=== PATIENT | female | born 1955 | race Caucasian/White ===

== ENCOUNTER 2020-02-03 12:53 | Inpatient (IN) | payer OTHER ==
[~2020-02-03] VITALS: Ht 147.3 cm; Wt 38.1 kg
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
[2020-02-03] MEDS ORDERED: OLAN15TA3 PO (15:36)
[2020-02-03] MEDS ORDERED: CARB-53 PO (15:36)
[2020-02-03 16:00] VITALS: BP 120/55
[2020-02-03] MEDS ORDERED: TEMAZEPAM 7.5 MG CAPSULE PO PRN (16:30)
[2020-02-03] MEDS ORDERED: MAGNESIUM HYDROXIDE 30 ML UDC PO PRN (16:30)
[2020-02-03] MEDS ORDERED: BLOOD SUGAR DIAGNOSTIC 1 EACH STRIP IN ONE (16:30)
[2020-02-03] MEDS ORDERED: MAG HYDROX/AL HYDROX/SIMETH 30 ML UDC PO PRN (16:30)
[2020-02-03] MEDS ORDERED: ACETAMINOPHEN 325 MG TABLET PO PRN (16:30)
--- NOTE | 2020-02-03 16:30 | NUR ---
GPS/RN-NOTES BOARD OF EDUCATION SECRETARY CALLED DR. WRIGHT REGARDING PATIENT ADMISSION AND LEFT A VOICE MESSAGE. STILL AWAITING FOR CALL BACK.
[2020-02-03 20:00] VITALS: BP 97/50
--- NOTE | 2020-02-03 21:00 | NUR ---
RN NOTES: PT. SEEN BY DR WRIGHT ,WITH NEW ORDES, NEW ORDES NOTED AND CARRIED OUT.
[2020-02-03] MEDS: risperiDONE 1 MG TABLET PO SCH (21:50)
[2020-02-03 23:00] VITALS: BP 100/64
--- NOTE | 2020-02-04 06:38 | NUR ---
GPS RN NOTES: PT. RESTING IN HER ROOM, PT.REMAINED STABLE THROUGHOUT SHIFT, NO S/S OF DISTRESS NOTED , ALL CARE NEEDS MET ANTICIPATED. MED COMPLIANT ,PT. BEHAVIOR ,PARANOID EASILY AGITATED, NEEDS FREQUENTLY REDIRECTIONS ,WILL CONTINUE TO MONITOR FOR SAFETY BEHAVIOR, AND ENDORSE TO AM SHIFT FOR CONTINUITY OF CARE.
--- NOTE | 2020-02-04 06:44 | NUR ---
RN NOTES : REFUSED SKIN ASSESSMENT PT. REFUSED SKIN ASSESSMENT AND PICTURES TO BE TAKEN , PER PT. STATED MY SKIN IS GOOD RISKS AND BENEFITS EXPLINED, PT. STRONGLY REFUSED, AND PT. REFUSED FACE PICTURES FOR THE CHART.
[2020-02-04 08:00] VITALS: BP 106/85
[2020-02-04] MEDS: risperiDONE 1 MG TABLET PO SCH ×2 (08:32→20:53)
[2020-02-04 08:55] LABS: ALBUMIN 3.4 g/dL (3.4-5.0); BILIRUBIN,TOTAL 0.4 mg/dL (0.2-1.0); CALCIUM, SERUM 8.8 mg/dL (8.5-10.1); CREATININE 0.5 mg/dL (0.6-1.3); TOTAL PROTEIN, SERUM 7.6 g/dL (6.4-8.2)
--- NOTE | 2020-02-04 10:47 | NUR ---
INITIAL DISCHARGE PLAN: Patient currently resides at [address] [place] [address] ([phone]). Patient would like to return to her apartment upon discharge. Patient's counter caser Nettie William ([phone]) is involved in her care. SW will continue to work with patient, family, and MD to ensure a safe and proper discharge plan.
--- NOTE | 2020-02-04 10:48 | NUR ---
PHILOSOPHY PROFESSORSPRINKLER TRUCK DRIVER: SW contacted patient's watch case polisher Nettieivana William ([phone]) who is involved in her care to collect collateral information. Nettie stated to give her a call back at 11:30am.
--- NOTE | 2020-02-04 11:00 | NUR ---
UR NOTE: Auth: [id number] [facility]- [employer] Approval Days - 3 - 02/02-02/04 Concurrent Review Due on 02/04 Case Manger: Elodia: [phone]
--- NOTE | 2020-02-04 11:10 | NUR ---
GPS/RN-NOTES OFFERED FLU VACCINE AND PNA VACCINE STATED" MY DOCTOR TOLD ME THAT I DON'T NEED ANY VACCINE,AND I NEVER TAKE ANY VACCINE IN MY LIFE". EXPLAINED RISK AND BENEFITS BUT PATIENT STILL REFUSED.
--- NOTE | 2020-02-04 12:00 | NUR ---
CLAIMS SERVICE ADJUSTORMILK BOTTLING MACHINE OPERATOR: SW spoke with patient's case management rn Nettie Goodmano ([phone]) who stated that she has been working with the patient for the past 3 months. Nettie stated that the patient has been evicted from her apartment as of 02/02/20 and was escorted out by the local refinery operator visbreaking. Nettie asked this proposal writer to help find the patient placement. This SW explained of the several options such as Board and Care, Assisted Living or Possible SNF. Nettie was understanding and hopeful. This SW explained that patient would need to agree with placement.
--- NOTE | 2020-02-04 12:03 | NUR ---
SAUL MANAGER CHEMISTRY CONTACT: SAUL contacted patient's accountant property Caitlyn Cancino ([phone]) regarding patient eviction. This sw requested Caitlyn to fax this junior technical writer fax: [phone] as soon as possible. Caitlyn stated that they served the patient an eviction letter but was unable to clarify whether it was during or before COVID. This junior technical writer stated that we cannot discuss further until the eviction letter is reviewed to determine wether or not the patient may or may not return back home.
--- NOTE | 2020-02-04 13:25 | NUR ---
WRITER EDITORRE EXAMINER: SW received a call from patient's classification case manager Nettie Goodmano ([phone]) who stated that the patient was served an eviction sign on her door on01/25/20 and a letter in the mail, pending eviction since June,. This sw requested Nettie to email this contract technical writer the eviction letter that she has in order to review it. This sw provided her email address ([email or web address]).
--- NOTE | 2020-02-04 13:40 | NUR ---
MIXING PLACE SUPERVISORAIRCRAFT TOOL MAKER: SW received the eviction letter emailed from patient's case resolution specialist Nettie William ([phone]). The eviction letter confirms that the patient cannot return back to her apartment as she has been officially by the [facility] of the [facility] dated 06/19/19. A copy of this letter has been placed in the patient's chart.
--- NOTE | 2020-02-04 14:41 | NUR ---
GPS/RN-NOTES RECEIVED CALL FROM [employer] WITH RECOMMENDATIONS OF ENSURE FOR THE PATIENT. PLANT FLOOR AUTOMATION MANAGER ASKED PATIENT IF SHE WILL TAKE ENSURE SUPPLEMENT RECOMMENDED BY THE TREE THINNER. PATIENT STATED" I RATHER DRINK MILK INSTEAD OF ENSURE BECAUSE I'M WATCHING MY DIET". EXPLAINED RISK AND BENEFITS BUT PATIENT STILL DON'T WANT THE ENSURE.
[2020-02-04 16:00] VITALS: BP 112/72
[2020-02-04 19:49] VITALS: BP 103/61
[2020-02-05 08:00] VITALS: BP 100/59
--- NOTE | 2020-02-05 08:10 | NUR ---
UR NOTE: Auth: [id number] SW received a voicemail from Elodia daycare manager at [facility] ([phone]. [phone]) stating that the patient is authorized for continued stay for additional 4 days with review due on 02/09/20. Clinical review due 02/09/20 should patient require further hospitalization.
[2020-02-05] MEDS: risperiDONE 1 MG TABLET PO SCH ×2 (08:16→21:10)
--- NOTE | 2020-02-05 10:26 | NUR ---
BUSINESS OFFICE TECHNICIANCABLE LAYER: SW spoke with patients case briefer, Nettie Goodmano ([phone]) and discussed discharge planning. This SW stated that after reviewing the eviction letter it is clear that the patient cannot return back to her apartment. This SW stated that after discussing this situation with the patient, she agreed to alternate placement and accepted the fact that she cannot return back to her apartment. Nettie stated that she is working on getting the patient placed in [facility] in-patient psychiatric health facility and is waiting for a confirmation should they have a bed available today or in the coming two days. This SW informed of limited time we have as the patients insurance authorized the patients hospitalization until 02/09/20. Nettie stated that she will give this SW a call at 1:00PM today to update regarding be availability. This SW also discussed that should the patient not be able to admit to the in-patient facility, she may need long-term in [place]. Nettie was understanding of these circumstances and stated that she and her team are actively working on finding the patient a safe placement.
--- NOTE | 2020-02-05 10:27 | NUR ---
COORDINATION OF CARE: SW received a call from Nilam Registered Nurse ([phone]) from [facility] [address] [place] [address] [phone]) stating they are accepting the patient as a transfer from our unit to theirs while remaining on the 5150 hold. The accepting psychiatrist is Dr. Nettles. This SW spoke with Nilam and stated that they would need to provide ambulance transportation for the patient. Nilam stated she will confirm and donte this adoption social worker back to give a confirmed time.
--- NOTE | 2020-02-05 10:55 | NUR ---
COORDINATION OF CARE: SAUL spoke with Sherrie at [facility] ([phone]) to scheduled patient's transportation today. Sherrie will call this sw back with time and confirmation. This sw stated that the patient will remain on a 5150 hold during the transfer. Addendum: 02/05/20 at 1543 by KHALIDA BREWER SAUL spoke with Sherrie and Kristina at [facility] ([phone]) and discussed that the transfer today is cancelled. Kristina stated that once the patient is ready for discharge or transfer, they will provide transportation.
--- NOTE | 2020-02-05 14:15 | NUR ---
COORDINATION OF CARE: Katherine from [facility] [address] [place] [address] ([phone]) called this speech writer confirming the patient's legal status. She stated Nilam will call this SW back regarding transfer update.
--- NOTE | 2020-02-05 14:20 | NUR ---
COORDINATION OF CARE: SAUL received a call from Nilma (ph: [phone] fax: [phone]) requesting patient's clinicals and stated that they are arranging transportation and will call this sign writer hand back soon with a time. This SW faxed Nilam the requested clinicals including the negative COVID test result, 5150 hold, history and physical labs and mediation.
--- NOTE | 2020-02-05 15:32 | NUR ---
COORDINATION OF CARE: SW spoke with Nilam Lead Registered Nurse ([phone]) and Mayra ([phone]) security systems administrator at [facility] who stated that they are unable to accept the patient today due to the patient not having yet had their 5250 probable cause hearing. They stated that once the patient has the hearing, they can accept the transfer. This SW also spoke with patient's case loader operator Nettie Stewart ([phone]) who is updated and made aware of this case. Nettie stated that she will continue to follow up with this social media intern as well as Nilam and Mayra to make sure the patient transfers next week after her PC hearing. Nettie is also aware of the fact that should this plan not work out, she is responsible for finding the patient alternate placement. Mayra also stated that she will begin a bed hold for the patient starting Saturday02/08/20 and she will discuss with accepting psychiatrist Dr. Nettles and keep the bed available for the patient for next week.
[2020-02-05 16:00] VITALS: BP 100/64
[2020-02-05 20:41] VITALS: BP 103/60
--- NOTE | 2020-02-06 06:20 | NUR ---
GPS RN NOTES: PT. RESTING IN HIS ROOM, PT.REMAINED STABLE THROUGHOUT SHIFT, NO S/S OF DISTRESS NOTED , ALL CARE NEEDS MET ANTICIPATED. MED COMPLIANT ,PT. BEHAVIOR ,PARANOID EASILY AGITATED, NEEDS FREQUENTLY REDIRECTIONS ,WILL CONTINUE TO MONITOR FOR SAFETY BEHAVIOR, AND ENDORSE TO AM SHIFT FOR CONTINUITY OF CARE. Addendum: 02/06/20 at 0622 by NAYELI CORDOVA RN GPS RN NOTES: PT. RESTING IN HER ROOM, PT.REMAINED STABLE THROUGHOUT SHIFT, NO S/S OF DISTRESS NOTED , ALL CARE NEEDS MET ANTICIPATED. MED COMPLIANT ,PT. BEHAVIOR ,PARANOID EASILY AGITATED, NEEDS FREQUENTLY REDIRECTIONS ,WILL CONTINUE TO MONITOR FOR SAFETY BEHAVIOR, AND ENDORSE TO AM SHIFT FOR CONTINUITY OF CARE.
[2020-02-06 08:00] VITALS: BP 100/66
[2020-02-06] MEDS: risperiDONE 1 MG TABLET PO SCH ×2 (08:18→21:18)
--- NOTE | 2020-02-06 09:00 | NUR ---
RN NOTE- PT IS ALERT AND ORIENTED TO SELF ONLY. DISORGANIZED. PO INTAKE GOOD. MED COMPLIANT. DISHEVELED. DIRECTABLE. CALM. STAND BY ASSIST UNSTEADY GAIT. RESPONDING TO INTERNAL STIMULI.
[2020-02-06 16:00] VITALS: BP 96/60
[2020-02-06 20:23] VITALS: BP 101/51
[2020-02-07 08:00] VITALS: BP 100/55
[2020-02-07] MEDS: risperiDONE 1 MG TABLET PO SCH ×2 (08:25→20:28)
[2020-02-07 16:00] VITALS: BP 106/58
[2020-02-07 19:55] VITALS: BP 108/71
--- NOTE | 2020-02-08 01:55 | NUR ---
GPS-RN NOTE: INSOMNIA PATIENT C/O UNABLE TO SLEEP. ADMINISTERED RESTORIL 7.5MG PO ORDERED. WILL CONTINUE TO MONITOR FOR PATIENT'S SAFETY.
[2020-02-08 08:00] VITALS: BP 119/69
[2020-02-08] MEDS: risperiDONE 1 MG TABLET PO SCH ×2 (08:46→20:57)
[2020-02-08] MEDS: LORAZEPAM 0.5 MG TABLET PO PRN (08:46)
--- NOTE | 2020-02-08 08:47 | NUR ---
RN NOTE: ANXIETY PT HYPERVERBAL THIS AM. UNABLE TO BE REDIRECTED. IRRITABLE AND RESPONDING TO INTERNAL STIMULI. MEDICATED WITH ATIVAN 0.5MG PO PRN
--- NOTE | 2020-02-08 12:07 | NUR ---
SAUL COORDINATION OF CARE: SW spoke with Ryan, charge nurse ([phone]) at [facility] [address] [place] [address] to inform him pts 5250 PC hearing was upheld for gravely disabled. Per Ryan, he states he is trying to figure out transportation for pt and will call SW to provide her with an update once he has one.
--- NOTE | 2020-02-08 12:09 | NUR ---
COORDINATION OF CARE: SW contacted [facility] ([phone]) to scheduled patient's transportation today. SW will receive a call back with time and confirmation.
--- NOTE | 2020-02-08 12:12 | NUR ---
COORDINATION OF CARE: SAUL contacted Elodia with [facility] crisis team [facility] ([phone]) for transportation arrangement and left a voicemail for callback.
--- NOTE | 2020-02-08 12:37 | NUR ---
COORDINATION OF CARE: SAUL contacted Elodia with [facility] crisis team [facility] ([phone]) who stated she is unable to arrange transportation for pt as pt is currently on a 5250 hold.
--- NOTE | 2020-02-08 12:39 | NUR ---
COORDINATION OF CARE: SAUL contacted Nnamdi with [facility] ([phone]) and informed him [facility] Crisis team declined to provide transportation for pt as pt is currently on a 5250 hold. Per Nnamdi, he stated he will be contacting his account manager relief to provide better information to SUAL.
--- NOTE | 2020-02-08 12:43 | NUR ---
SAUL COORDINATION OF CARE: SAUL received a call from Ryan charge nurse ([phone]) at [address] [address] who stated he is working on transportation for pt and does not know if he will be able to provide transportation for pt. Addendum: 02/08/20 at 1244 by ENRIQUE HUGHES He stated that possibly tomorrow he will be able to arrange transportation.
[2020-02-08 16:00] VITALS: BP 98/72
[2020-02-08 20:00] VITALS: BP 104/50
[2020-02-08] MEDS: risperiDONE 0.25 MG TABLET PO SCH (22:30)
--- NOTE | 2020-02-08 22:46 | NUR ---
GPS RN NOTES: PT ASLEEP OFFERED PT RISPERDAL 0.75MG PO ORDERED BY MD. PT ASLEEP. OFFERED PT AGAIN PT REFUSED TO TAKE MEDS. NO SOB. BREATHING EVEN AND UNLABORED. NO PAIN AT THIS TIME. NO RESP DISTRESS. CONTINUE TO MONITOR.
[2020-02-09 04:03] VITALS: BP 109/61
[2020-02-09] MEDS: LORAZEPAM 0.5 MG TABLET PO PRN (04:08)
--- NOTE | 2020-02-09 04:10 | NUR ---
GPS RN NOTES: ANXIOUS UPON DOING ROUNDS, PT AWAKE READING OUT LOUD. PT STATE, "IM STATING MY NOTES." PT ANXIOUS. VITALS CHECKED WNL.OFFERED ATIVAN 0.5 MG PO PRN ORDERED. PT AGREED AND TOLERTAED MEDICATION WELL.CONTINUE TO MONITOR.
[2020-02-09 08:00] VITALS: BP 102/73
--- NOTE | 2020-02-09 09:16 | NUR ---
SAUL COORDINATION OF CARE: SAUL contacted Arturo, charge nurse ([phone]) at [facility] [address] for follow up on transfer and transportation for pt. Per Martha, coordinator, transportation and transfer have been confirmed and will be coming within the next 2 hours to pick pt up. Addendum: 02/09/20 at 0934 by ENRIQUE HUGHES SAUL faxed [phone] holds and PC Hearing Certification along with clinicals to Martha Gurrola: [phone].
--- NOTE | 2020-02-09 09:34 | NUR ---
DISCHARGE NOTE: Pt will be transferred at 11:00am via facility transport to [facility] [address] [place] [address] ([phone]). Pt has no family to notify. Pts mood is labile with congruent affect. Pt is confused, disorganized, hyperverbal, and talking to self. Pt is alert and oriented x1; to self only. Pt will be under the care of Psychiatrist: Dr. Nettles Address: [address] [place] [address] and Accounting Machine Mechanic: Dr. Isreal Shaikh Address: [address] [place] [address] .
--- NOTE | 2020-02-09 09:43 | NUR ---
CAR STOWERTUBING TESTER: SAUL received a call from patient's outpatient case manager Nettie William ([phone]) requesting discharge information for pt. SAUL informed her pt will [facility].
--- NOTE | 2020-02-09 09:46 | NUR ---
UR NOTE: Auth: [id number] SAUL contacted Elodia healthcare manager [facility] ([phone]. [phone]) and left a voicemail with discharge clinical.
[2020-02-09 09:56] LABS: BASOPHILS # (AUTO) 0.1 /CMM (0.0-0.2); BASOPHILS % (AUTO) 1.2 % (0.0-2.0); EOSINOPHILS % (AUTO) 2.9 % (0.0-6.0); HEMATOCRIT 37 % (33-45); HEMOGLOBIN 12.4 g/dL (11.5-14.8); LYMPHOCYTES # (AUTO) 1.2 /CMM (0.8-4.8); LYMPHOCYTES % (AUTO) 26.9 % (20.0-44.0); MEAN CORPUSCULAR HGB CONC 33 g/dl (31.0-36.0); MEAN CORPUSCULAR VOLUME 94 fL (82-100); MONOCYTES # (AUTO) 0.5 /CMM (0.1-1.30); MONOCYTES % (AUTO) 11.1 % (2.0-12.0); NEUTROPHILS # (AUTO) 2.5 /CMM (1.8-8.9); NEUTROPHILS % (AUTO) 57.9 % (43.0-81.0); PLATELET COUNT (AUTO) 239 /CMM (150-450); RED BLOOD CELL COUNT(AUTO) 3.99 MIL/uL (4.0-5.2); WHITE BLOOD COUNT (AUTO) 4.4 K/uL (4.3-11.0)
[2020-02-09 10:20] LABS: CALCIUM, SERUM 8.7 mg/dL (8.5-10.1); CREATININE 0.5 mg/dL (0.6-1.3); MAGNESIUM 2.1 mg/dL (1.8-2.4); PHOSPHORUS 3.9 mg/dL (2.5-4.9); POTASSIUM 3.8 mmol/L (3.5-5.1)
[2020-02-09] MEDS: risperiDONE 0.25 MG TABLET PO SCH (11:11)
--- NOTE | 2020-02-09 11:55 | NUR ---
MACHINE STOPPAGE FREQUENCY CHECKER NOTE: 64 YEAR OLD FEMALE DISCHARGED TO [facility] [place] VIA FACILITY CAR IN STABLE CONDITION. PT IS COMPLIANT WITH MEDICATIONS AND TREATMENT PLAN. PATIENT DENIES CURRENT SI/HI. PT INSTRUCTED TO GO TO THE CLOSEST ER IF SI/HI DEVELOPES. PT A+OX1 AND RESPONDING TO INTERNAL STIMULI. PSYCHIATRIC TREATMENT PLANS AND MEDICAL TREAMTMENT PLANS TO CONTINUE AT PSYCHIATRIC FACILITY. EXIT CARE EXPLAINED TO FACILITY IMPORT CUSTOMER SERVICE MANAGER. CONTINUATION OF CARE FORM SIGNED BY FACILITY EMPLOYEE AND PLACE IN THE PATIENT'S CHART. PERSONAL BELONGINGS RETURNED TO PATIENT. PT ID BAND REMOVED. MEDICATIONS RECONCILED WITH DR. WRIGHT AND DR. TELLES. REPORT CALLED TO MARYJO RAMOS. PATIENT UNABLE TO SIGN DISCHARGE PAPERWORK DUE TO CURRENT MENTAL STATUS. SKIN INTACT ON ADMIT AND DISCHARGE. PATIENT LEFT THE UNIT AT 11:55
== END 2020-02-09 11:55 | DRG 885 ==
LOC: GPS 15:14
PROVIDERS: ADMIT Psychiatry & Neurology Psychiatry; ATTEND Internal Medicine
DX: F29 Unspecified psychosis not due to a substance or known physiological condition (principal); E44.0 Moderate protein-calorie malnutrition; R64 Cachexia; Z68.1 Body mass index [BMI] 19.9 or less, adult; F23 Brief psychotic disorder; F41.9 Anxiety disorder, unspecified; Z73.6 Limitation of activities due to disability; E88.09 Other disorders of plasma-protein metabolism, not elsewhere classified; F32.9 Major depressive disorder, single episode, unspecified; M62.81 Muscle weakness (generalized); G31.84 Mild cognitive impairment of uncertain or unknown etiology
CPT/HCPCS: 36415; 80048-TC; 80053-TC; 82962-TC; 83735-TC; 84100-TC; 85025-TC; 87081-TC